=== PATIENT | female | born 1950 | race Two or more races ===

== ENCOUNTER 2017-11-30 16:06 | Inpatient (IN) | payer MEDICARE, OTHER ==
[~2017-11-30] VITALS: Ht 160 cm; Wt 70.4 kg
[2017-11-30] MEDS ORDERED: ONDANSETRON HCL/PF 4 MG/2 ML VIAL IVP ONE (16:30)
[2017-11-30] MEDS ORDERED: IV NS 0.9% 1,000 ML BAG IV ONE (16:30)
[2017-11-30] MEDS ORDERED: ONDANSETRON HCL/PF 4 MG/2 ML VIAL ONE (16:36)
--- NOTE | 2017-11-30 16:40 | NUR ---
[id number] FROM HOME: HEADACHE, NAUSEA, VOMITING, DIZZINESS, WEAKNESS x 1 DAY. NAD VSS RR EVEN AND UNLABORED. A/OX3. WILL CONT TO MONITOR
[2017-11-30 17:22] LABS: BASOPHILS % (AUTO) 0.5 % (0.0-2.0); EOSINOPHILS # (AUTO) 0.1 /CMM (0.0-0.7); EOSINOPHILS % (AUTO) 1.9 % (0.0-6.0); HEMATOCRIT 40 % (33-45); HEMOGLOBIN 13.3 g/dL (11.5-14.8); LYMPHOCYTES # (AUTO) 1.5 /CMM (0.8-4.8); LYMPHOCYTES % (AUTO) 22.2 % (20.0-44.0); MEAN CORPUSCULAR HEMOGLOBIN 28 PG (26.0-33.0); MEAN CORPUSCULAR HGB CONC 33 g/dl (31.0-36.0); MEAN CORPUSCULAR VOLUME 84 fL (82-100); MONOCYTES # (AUTO) 0.4 /CMM (0.1-1.30); MONOCYTES % (AUTO) 6.6 % (2.0-12.0); NEUTROPHILS # (AUTO) 4.6 /CMM (1.8-8.9); NEUTROPHILS % (AUTO) 68.8 % (43.0-81.0); PLATELET COUNT (AUTO) 258 /CMM (150-450); RDW COEFFICIENT OF VARIATION 14.1 (11.5-15.0); RED BLOOD CELL COUNT(AUTO) 4.78 MIL/uL (4.0-5.2); WHITE BLOOD COUNT (AUTO) 6.7 K/uL (4.3-11.0)
[2017-11-30 17:33] LABS: CALCIUM, SERUM 9.1 mg/dL (8.5-10.1); CARBON DIOXIDE 24 mmol/L (21-32); CHLORIDE 104 mmol/L (98-107); CREATININE 0.8 mg/dL (0.6-1.3); GLUCOSE 124 mg/dL (74-106); POTASSIUM 3.7 mmol/L (3.5-5.1); SODIUM SERUM 138 mmol/L (136-145); UREA NITROGEN, BLOOD 15 mg/dL (7-18)
[2017-11-30 17:39] LABS: ALANINE AMINOTRANSFERASE 23 U/L (12-78); ALBUMIN 3.9 g/dL (3.4-5.0); ALKALINE PHOSPHATASE 101 U/L (46-116); ASPARTATE AMINOTRANSFERASE 22 U/L (15-37); BILIRUBIN,DIRECT 0.1 mg/dL (0.0-0.2); BILIRUBIN,TOTAL 0.6 mg/dL (0.2-1.0); TOTAL PROTEIN, SERUM 7.7 g/dL (6.4-8.2); TROPONIN I < 0.017 ng/mL (0.00-0.056)
[2017-11-30] MEDS ORDERED: AMLO10TA2 PO (18:58)
--- NOTE | 2017-11-30 19:01 | NUR ---
RECEIVED REPORT FROM MARCK CULP.
--- NOTE | 2017-11-30 19:10 | NUR ---
DR. LYNN SPEAKING TO DR. BALL REGARDING RESULTS.
--- NOTE | 2017-11-30 19:20 | NUR ---
Georgi hatfield in [facility] - 11/30/17 at 1920 by SHERRI PT RETURNED FROM CT.
[2017-11-30] MEDS ORDERED: ZOLPIDEM TARTRATE 5 MG TABLET PO PRN (20:00)
[2017-11-30] MEDS ORDERED: MORPHINE SULFATE INJ 4 MG/ML DISP.SYRIN IV PRN (20:00)
[2017-11-30] MEDS ORDERED: ACETAMINOPHEN 325 MG TABLET PO PRN (20:00)
[2017-11-30] MEDS ORDERED: MAGNESIUM HYDROXIDE 30 ML UDC PO PRN (20:00)
[2017-11-30] MEDS ORDERED: Z GUARD REMEDY 2 OZ OINT TP PRN (20:00)
[2017-11-30] MEDS ORDERED: HYDROCODONE/APAP 5/325MG 1 EACH TABLET PO PRN (20:00)
[2017-11-30] MEDS ORDERED: MAG HYDROX/AL HYDROX/SIMETH 30 ML UDC PO PRN (20:00)
[2017-11-30] MEDS ORDERED: ONDANSETRON HCL/PF 4 MG/2 ML VIAL IVP PRN (20:00)
[2017-11-30] MEDS ORDERED: ENOXAPARIN SODIUM 40 MG/0.4 ML DISP.SYRIN SQ SCH (20:00)
--- NOTE | 2017-11-30 20:14 | NUR ---
PT ASSIGNED TO [facility] 304-2
[2017-11-30] MEDS ORDERED: METOCLOPRAMIDE HCL 10 MG/2 ML VIAL IV PRN (20:30)
[2017-11-30] MEDS ORDERED: hydrALAZINE HCL 25 MG TABLET PO PRN (20:30)
[2017-11-30] MEDS ORDERED: MECLIZINE HCL 12.5 MG TABLET PO PRN (20:30)
--- NOTE | 2017-11-30 20:30 | NUR ---
REPORT GIVEN TO MARCK LUTHER FOR [facility] BED 304-2
[2017-11-30 20:40] VITALS: BP 131/74
--- NOTE | 2017-11-30 20:40 | NUR ---
TELE/RN NOTES PT RECEIVED FROM ER VIA VALERIE. A/OX4. EMIRATI/MOLDOVAN SPEAKING. ON ROOM AIR, BREATHING IS EVEN AND UNLABORED. IN NO APPARENT DISTRESS. DENIES SOB OR PAIN. DENIES N/V OR FEELING OF DIZZINESS AT THIS TIME. IV TO RAC PATENT AND INTACT. FLUSHES WELL. FAMILY AT BEDSIDE. DINO (DTR) [phone] AND RIA (DTR) [phone]. ORIENTED PT TO ROOM AND CALL LIGHT. BED IN LOW/LOCKED POSITION WITH CALL LIGHT IN REACH. SIDE RAILS UPX2. ENCOURAGED PT TO ASK FOR ASSISTANCE VIA CALL LIGHT BEFORE GETTING OUT OF BED. PT VERBALIZED UNDERSTANDING. WILL CONTINUE TO MONITOR
--- NOTE | 2017-11-30 20:45 | NUR ---
PT TRANSFERRED PER [facility]S PROTOCOL.
[2017-11-30 21:00] VITALS: BP_SYST 106; BP_SYST 131; BP_DIAS 59; BP_DIAS 74
--- NOTE | 2017-11-30 21:00 | NUR ---
TELE/RN NOTES PLACED ON TELE MONITOR SHOWING SINUS RHYTHM WITH HR 70
[2017-11-30] MEDS: IV NS 0.9% 1,000 ML IV PRN (21:02)
[2017-11-30] MEDS ORDERED: ENOXAPARIN SODIUM 40 MG/0.4 ML DISP.SYRIN SQ ONE (21:57)
--- NOTE | 2017-11-30 22:07 | NUR ---
TELE/RN NOTES PT COMPLAINING OF 3/10 HEADACHE. ADMINISTERED TYLENOL ORDERED. WILL MONITOR FOR EFFECTIVENESS
[2017-11-30] MEDS ORDERED: IBUPROFEN 200 MG TABLET PO PRN (22:30)
[2017-12-01] VITALS (7 sets, daily range): BP systolic 117–139; BP diastolic 64–83
--- NOTE | 2017-12-01 04:15 | NUR ---
TELE/RN ORTHOSTATICS COMPLETED. LAYING= PH=967/68, HR=53 DOWRAUH=UD=476/80, HR=59 STANDING= IO=677/83, HR=66
[2017-12-01 06:59] LABS: BASOPHILS # (AUTO) 0.1 /CMM (0.0-0.2); BASOPHILS % (AUTO) 0.7 % (0.0-2.0); EOSINOPHILS # (AUTO) 0.2 /CMM (0.0-0.7); EOSINOPHILS % (AUTO) 2.6 % (0.0-6.0); HEMATOCRIT 38 % (33-45); LYMPHOCYTES # (AUTO) 2.6 /CMM (0.8-4.8); LYMPHOCYTES % (AUTO) 34.4 % (20.0-44.0); MEAN CORPUSCULAR HEMOGLOBIN 29 PG (26.0-33.0); MEAN CORPUSCULAR HGB CONC 34 g/dl (31.0-36.0); MEAN CORPUSCULAR VOLUME 85 fL (82-100); MONOCYTES # (AUTO) 0.7 /CMM (0.1-1.30); MONOCYTES % (AUTO) 9.1 % (2.0-12.0); NEUTROPHILS % (AUTO) 53.2 % (43.0-81.0); PLATELET COUNT (AUTO) 262 /CMM (150-450); RDW COEFFICIENT OF VARIATION 14.3 (11.5-15.0); RED BLOOD CELL COUNT(AUTO) 4.54 MIL/uL (4.0-5.2); WHITE BLOOD COUNT (AUTO) 7.5 K/uL (4.3-11.0)
--- NOTE | 2017-12-01 07:01 | NUR ---
TELE/RN CLOSING NOTES PT AWAKE, RESTING COMFORTABLY IN BED. A/OX4. ON ROOM AIR, BREATHING EVEN AND UNLABORED. DENIES SOB, PAIN OR N/V. ON TELE MONITOR SHOWING SINUS MANNY WITH HR CURRENTLY 48. ASYMPTOMATIC. ASSISTED TO BATHROOM PRN. IV TO RAC PATENT AND INTACT RUNNING IVF ORDERED. KEPT PT COMFORTABLE DURING SHIFT. ALL NEEDS MET. NO SIGNIFICANT CHANGES OVERNIGHT. BED REMAINS IN LOW/LOCKED POSITION WITH CALL LIGHT IN REACH. SIDE RAILS XUP2. WILL ENDORSE TO DAY SHIFT RN JERRICA.
[2017-12-01 07:02] LABS: CALCIUM, SERUM 8.4 mg/dL (8.5-10.1); CREATININE 0.7 mg/dL (0.6-1.3); PHOSPHORUS 3.8 mg/dL (2.5-4.9); POTASSIUM 3.4 mmol/L (3.5-5.1)
--- NOTE | 2017-12-01 07:32 | NUR ---
RN OPENING NOTES RECEIVED PATIENT IN BED RESTING. A/OX3. NO ACUTE DISTRESS, NO SOB NOTED. DENIES PAIN OR DISCOMFORT. IV SITE INTACT AND PATENT. KEPT PATIENT SAFE AND COMFORTABLE IN BED. BED IN LOW/LOCKED POSITION, SIDERAILS UPX2, CALL LIGHT IN REACH. WILL CONTINUE TO MONITOR ACCORDINGLY.
[2017-12-01 09:12] LABS: APPEARANCE,URINE CLEAR (CLEAR); BILIRUBIN,URINE NEGATIVE (NEGATIVE); BLOOD, URINE NEGATIVE Ery/uL (NEGATIVE); COLOR,URINE YELLOW (YELLOW); KETONES,URINE NEGATIVE (NEGATIVE); LEUKOCYTE ESTERASE ,URINE NEGATIVE (NEGATIVE); NITRITE, URINE NEGATIVE (NEGATIVE); PROTEIN,URINE NEGATIVE (NEGATIVE); UGLUCOSE NEGATIVE (NEGATIVE); UROBILINOGEN,URINE 0.2 EU/dL (0.2)
[2017-12-01] MEDS: ASPIRIN 81 MG TAB.CHEW PO SCH (09:19)
[2017-12-01] MEDS: AMLODIPINE BESYLATE 10 MG TABLET PO SCH (09:20)
[2017-12-01] MEDS ORDERED: POTASSIUM CHLORIDE 20 MEQ TAB.PRT.SR PO ONE (12:00)
--- NOTE | 2017-12-01 19:30 | NUR ---
RN CLOSING NOTES PATIENT RESTING, FAMILY AT BEDSIDE. NO ACUTE DISTRESS, NO SOB NOTED. ALL NEEDS ATTENDED AND PROVIDED. ALL DUE MEDS GIVEN ORDERED. KEPT PATIENT SAFE AND COMFORTABLE. BED IN LOW/LOCKED POSITION. SIDERAILS UPX2. CALL LIGHT IN REACH. ENDORSED TO NIGHT RN FOR JERRICA.
--- NOTE | 2017-12-01 19:30 | NUR ---
RN NOTE; RECEIVED SITTING AT THE EDGE OF THE BED W/ FAMILY AT THE BED SIDE. BREATHING EVENLY. NO C/O PAIN OR DISCOMFORT, NO N/V. NO DIZZINESS. NEEDS ATTENDED .AND FALL PRECAUTION WAS REVIEWED W/ THE PT. BED LOW LOCKED ,CALL LIGHT WITHIN REACH. WILL CONT TO MONITOR
--- NOTE | 2017-12-01 20:47 | NUR ---
CALLED RADIOLOGY/ ULTRASOUND TO FOLLOW UP W/ CAROTID DUPLEX. PER TECH HE WILL FOLLOW UP HOWEVER THE STAT ORDERS HAVE PRIORITY.
[2017-12-01] MEDS: IV NS 0.9% 1,000 ML IV PRN (21:09)
[2017-12-01] MEDS: ATORVASTATIN 10 MG TABLET PO SCH (21:10)
[2017-12-01] MEDS: ENOXAPARIN SODIUM 40 MG/0.4 ML DISP.SYRIN SQ SCH (21:14)
[2017-12-02] VITALS (7 sets, daily range): BP systolic 72–138; BP diastolic 47–83
--- NOTE | 2017-12-02 06:22 | NUR ---
RN NOTE; PT IN BED. AWAKE AND ALERT. NO ACUTE EVENT DURING THE NIGHT. NO C/O PAIN OR DISCOMFORT, NO VERTIGO. NO N/V. ASSISTED PT AMBULATING TO THE BATHROOM. HANNAH WELL. ON ONGOING IVF HYDRATION. HANNAH WELL. NEEDS ATTENDED . BED LOW LOCKED. CALL LIGHT WITHIN REACH. WILL CONT TO MONITOR AND WILL ENDORSE TO AM SHIFT FOR JERRICA .
[2017-12-02 06:41] LABS: CALCIUM, SERUM 8.5 mg/dL (8.5-10.1); CREATININE 0.8 mg/dL (0.6-1.3); POTASSIUM 3.8 mmol/L (3.5-5.1)
--- NOTE | 2017-12-02 07:33 | NUR ---
MS/RN OPENING NOTE RECEIVED PATIENT IN BED RESTING COMFORTABLY. A&Ox4. NO ACUTE DISTRESS NOTED, RESPIRATIONS EVEN AND UNLABORED, DENIES PAIN AND DISCOMFORT, IV SITE INTACT AND PATENT. KEPT PATIENT CLEAN, COMFORTABLE AND SAFE IN BED. BED IN LOW/LOCKED POSITION, SIDE RAILS UPX2, CALL LIGHT IN REACH. WILL CONTINUE TO MONITOR.
[2017-12-02] MEDS: AMLODIPINE BESYLATE 10 MG TABLET PO SCH (08:45)
[2017-12-02] MEDS: ASPIRIN 81 MG TAB.CHEW PO SCH (08:45)
--- NOTE | 2017-12-02 19:20 | NUR ---
ms rn closing notes All needs attended, and anticipated, kept patient clean and comfortable in bed, call light with in patient reach, endorsed to next shift RN to continue care.
--- NOTE | 2017-12-02 20:00 | NUR ---
MS RN OPENING NOTES: RECEIVED PATIENT IN BED AWAKE, CONVERSING WITH TWO VISITORS AT BEDSIDE. PATIENT HAS AN IV ACCESS ON THE RIGHT AC G#20, NO SIGNS OR REDNESS OR INFECTION OR PHLEBITIS ON SITE. REALITY ORIENTATION DONE. PATIENT HAS NO COMPLAINS OF PAIN OR DISCOMFORT THIS TIME OF ASSESSMENT. WILL ADMINISTER ORDERED MEDICATIONS. OFFERED ORAL FLUIDS TOLERATED. SAFETY AND FALL PRECAUTIONS OBSERVED. PLACED BED IN LOCKED AND LOW POSITION. PLACED CALL LIGHT WITHIN PATIENT'S REACH. WILL CONTINUE TO MONITOR PATIENT.
[2017-12-02] MEDS: ATORVASTATIN 10 MG TABLET PO SCH (21:34)
[2017-12-02] MEDS: ENOXAPARIN SODIUM 40 MG/0.4 ML DISP.SYRIN SQ SCH (21:36)
--- NOTE | 2017-12-03 07:00 | NUR ---
MS RN CLOSING NOTES: PATIENT IN BED, AWAKE, NO COMPLAINS OF PAIN OR DISCOMFORT THIS TIME OF ASSESSMENT. NO CHANGES IN CONDITION NOTED DURING THE SHIFT. ENDORSE PATIENT TO DAY SHIFT NURSE.
--- NOTE | 2017-12-03 07:10 | NUR ---
RN NOTES PT IS SITTING UP IN BED, RESTING COMFORTABLY. PT ON RA, RESPIRATIONS ARE EVEN AND UNLABORED. IV ON RAC INTACT AND SL. SAFETY MEASURES ARE IN PLACE, CALL LIGHT IS IN REACH. WILL CONTINUE TO MONITOR.
[2017-12-03 08:00] VITALS: BP_SYST 136; BP_SYST 144; BP_DIAS 77; BP_DIAS 82
[2017-12-03] MEDS: ASPIRIN 81 MG TAB.CHEW PO SCH (08:27)
[2017-12-03 08:28] VITALS: BP 144/77
[2017-12-03] MEDS: AMLODIPINE BESYLATE 10 MG TABLET PO SCH (08:28)
[2017-12-03] MEDS ORDERED: ATOR10TA PO (10:56)
[2017-12-03] MEDS ORDERED: ASPI-1169 PO (10:56)
--- NOTE | 2017-12-03 14:00 | NUR ---
RN NOTES PT WAS DISCHARGED HOME IN STABLE CONDITION ACCOMPANIED BY HER FAMILY VIA PRIVATE CAR. IV AND ID BAND WERE REMOVED. DISCHARGE PAPERS WERE SIGNED AND BELONGINGS WERE RETURNED TO THE PT. PT WAS TOLD TO FOLLOW UP WITH PCP WITHIN 1-2 WEEKS OF DISCHARGE. PT VERBALIZED UNDERSTANDING AND STATED SHE WOULD MAKE AN APPOINTMENT. PT WAS EDUCATED ON NEW PRESCRIPTIONS AND VERBALIZED UNDERSTANDING.
== END 2017-12-03 14:00 | disposition home health service (06) | DRG 69 ==
LOC: ER 16:08 → TELE 20:15 → MED 12-01 09:19
PROVIDERS: ADMIT Internal Medicine; ATTEND Internal Medicine
DX: G45.9 Transient cerebral ischemic attack, unspecified (principal); E78.5 Hyperlipidemia, unspecified; H81.399 Other peripheral vertigo, unspecified ear; I10 Essential (primary) hypertension; K21.9 Gastro-esophageal reflux disease without esophagitis; E87.6 Hypokalemia
CPT/HCPCS: 36415; 70450-TC; 70551-TC; 71045-TC; 80048-TC; 80061-TC; 80076-TC; 81000-TC; 83735-TC; 84100-TC; 84484-TC; 85025-TC; 87081-TC; 93307-TC; 93880-TC; A4606; J1650; J2405; J7030; Z7610

== ENCOUNTER 2017-12-04 13:38 | Outpatient (CLI) | payer MEDICARE, OTHER ==
[~2017-12-04 13:38] MED LIST: AMLO10TA2 PO; ASPI-1169 PO; ATOR10TA PO
[2017-12-04 13:40] VITALS: BP 152/80
== END 2017-12-04 23:59 | disposition home or self-care (01) ==
LOC: MSC 13:38
PROVIDERS: ATTEND Internal Medicine
DX: R42 Dizziness and giddiness (principal); I10 Essential (primary) hypertension; E78.5 Hyperlipidemia, unspecified; K21.9 Gastro-esophageal reflux disease without esophagitis